=== PATIENT | female | born 1960 | race Caucasian/White ===

== ENCOUNTER 2020-12-31 08:58 | Outpatient (CLI) | payer BC, SELFPAY ==
--- NOTE | ~2020-12-31 | MM_ITS ---
EXAMINATION: MM screening [facility] BI w kushal HISTORY: Screening mammogram TECHNIQUE: Craniocaudal and mediolateral oblique 3-D tomosynthesis images were obtained and synthetic 2-D images were generated. CAD analysis was submitted and interpreted. COMPARISON: 06/12/2018, 08/17/2016, 04/13/2015 BREAST PARENCHYMAL COMPOSITION: The breasts are extremely dense, which lowers the sensitivity of mamm ography. FINDINGS: There is no evidence of suspicious mass, calcification, or architectural distortion to sugg est malignancy in either breast. There has been no suspicious interval change. IMPRESSION: 1. No mammographic evidence of malignancy. 2. Recommend routine screening mammography in one year. BI-RADS Category 1: Negative Reviewed, dictated and finalized at location A. [employer] TECHNICIAN
--- NOTE | ~2020-12-31 | DEXA_ITS ---
Bone Density Report Name: Mary Ann Du Age: 60 Sex: Female Ethnicity: White Date of : 1960 Indication: postmenopausal; hysterectomy; Referring Provider: Krys Flor Study: Bone densitometry was performed. Exam Date: December 31, 2020 Accession number: [id number] Bone Density: Region BMD T-score Z-score Classification AP Spine (L1-L4) 0.945 -0.9 0.6 Normal Femoral Neck (Left) 0.680 -1.5 -0.2 Osteopenia Total Hip (Left) 0.946 0.0 1.0 Normal Total Hip Bilateral Avg 0.978 0.3 1.3 Normal Femoral Neck (Right) 0.710 -1.3 0.1 Osteopenia Total Hip (Right) 1.009 0.6 1.6 Normal World Health Organization criteria for BMD impression classify patients as: Normal (T-score at or above -1.0), Osteopenia (T-score between -1.0 and -2.5), or Osteoporosis (T-score at or below -2.5). 10-year Fracture Risk(1): Major Osteoporotic Fracture 8.3% Hip Fracture 0.7% Reported Risk Factors: [place] (), Neck BMD=0.680, BMI=27.4 (1) FRAX(R) Version 3.08. Fracture probability calculated for an untreated patient. Fracture probability may be lower if the patient has received treatment. Previous Exams: Region Exam Age BMD T-score BMD Change BMD Change Date g/cm2 vs Baseline vs Previous AP Spine(L1-L4) 12/31/2020 60 0.945 -0.9 -0.144(-13.3%) -0.043(-4.4%)* 08/17/2016 55 0.988 -0.5 -0.101(-9.3%)# -0.045(-4.4%)# 07/28/2010 49 1.034 -0.1 -0.056(-5.1%)* -0.056(-5.1%)* 05/17/2005 44 1.089 0.4 Total Hip(Left) 12/31/2020 60 0.946 0.0 -0.067(-6.6%)# -0.036(-3.6%)* 08/17/2016 55 0.982 0.3 -0.031(-3.1%)# -0.024(-2.4%)# 07/28/2010 49 1.006 0.5 -0.007(-0.7%) -0.007(-0.7%) 05/17/2005 44 1.013 0.6 Total Hip(Right) 12/31/2020 60 1.009 0.6 -0.073(-6.7%)# -0.016(-1.5%) 08/17/2016 55 1.025 0.7 -0.057(-5.3%)# -0.058(-5.3%)# 07/28/2010 49 1.083 1.2 0.000(0.0%) 0.000(0.0%) 05/17/2005 44 1.082 1.2 *Denotes significance at 95% confidence level, LSC for AP Spine = 0.022 g/cm2, LSC for Total Hip = 0.027 g/cm2 Clinical Information Provided by Patient: Has the following medical conditions: Hysterectomy Patient maximum height was 62 Menopause Age: 37 No regular weight bearing exercise Drinks caffeinated beverages Onset of menses at age 12 Number of children 2 Impression: The patient has low bone mass, based on the Left Femoral Neck T-score. The patient has an estimated ten-ye
== END 2020-12-31 08:59 | disposition home or self-care (01) ==
LOC: ANHIMG 09:00
PROVIDERS: PCP Family Medicine; Visit Provider Physician Assistant
DX: Z78.0 Asymptomatic menopausal state (principal); Z12.31 Encounter for screening mammogram for malignant neoplasm of breast; M85.852 Other specified disorders of bone density and structure, left thigh; M85.851 Other specified disorders of bone density and structure, right thigh
CPT/HCPCS: 77063; 77067; 77080

== ENCOUNTER 2022-04-18 14:23 | Outpatient (CLI) | payer BC, SELFPAY ==
--- NOTE | ~2022-04-18 | MM_ITS ---
EXAMINATION: MM screening [facility] BI w kushal HISTORY: Screening mammogram TECHNIQUE: Craniocaudal and mediolateral oblique 3-D tomosynthesis images were obtained and synthetic 2-D images were generated. CAD analysis was submitted and interpreted. COMPARISON: 12/2020, 06/12/2018, 08/17/2016 bilateral screening mammogram examinations BREAST PARENCHYMAL COMPOSITION: The breasts are extremely dense, which lowers the sensitivity of mamm ography. FINDINGS: There is no evidence of suspicious mass, calcification, or architectural distortion to sugg est malignancy in either breast. There has been no suspicious interval change. IMPRESSION: 1. No mammographic evidence of malignancy. 2. Recommend routine screening mammography in one year. BI-RADS Category 1: Negative Reviewed, dictated and finalized at location A.
== END 2022-04-18 14:24 | disposition home or self-care (01) ==
LOC: ANHIMG 14:24
PROVIDERS: PCP Family Medicine; Visit Provider Family Medicine
DX: Z12.31 Encounter for screening mammogram for malignant neoplasm of breast (principal)
CPT/HCPCS: 77063; 77067